=== PATIENT | female | born 1985 | race African-American/Black ===

== ENCOUNTER 2021-03-30 09:10 | Emergency (ER) | payer OTHER, MEDICAID ==
[~2021-03-30] VITALS: Ht 160 cm; Wt 61.0 kg
[2021-03-30] MEDS ORDERED: DIAZEPAM 5 MG TABLET PO ONE (11:00)
[2021-03-30] MEDS ORDERED: METH-773 MT (12:35)
[2021-03-30] MEDS ORDERED: IBUP-2029 MT (12:35)
[2021-03-30] MEDS: KETOROLAC 60MG/2ML VIAL IM ONE ×2 (12:39→12:42)
[2021-03-30 12:51] VITALS: BP 128/87
== END 2021-03-30 12:58 | disposition home or self-care (01) ==
LOC: ER 09:10
DX: S00.83XA Contusion of other part of head, initial encounter (principal); V49.9XXA Car occupant (driver) (passenger) injured in unspecified traffic accident, initial encounter; Y93.89 Activity, other specified; Y92.89 Other specified places as the place of occurrence of the external cause; Y99.8 Other external cause status
CPT/HCPCS: 70486; 72125; 81025; 99285; J1885